=== PATIENT | female | born 1975 | race American Indian/Alaskan Native ===

== ENCOUNTER 2018-02-16 10:31 | Outpatient (CLI) | payer MEDICAID ==
--- NOTE | 2018-02-16 13:42 | Ultrasound Report ---
RIGHT UPPER QUADRANT ABDOMINAL ULTRASOUND: 02/16/18 10:31:00 CLINICAL: Epigastric pain. FINDINGS: High-resolution ultrasound demonstrated a normal liver. Normal hepatic vasculature and inferior vena cava. Normally distended gallbladder with no stones. The gall bladder wall measures 1.3 mm in thickness. Normal intrahepatic and extra hepatic bile ducts. The common bile duct measures 2.0 mm diameter. The pancreas was fairly well imaged and normal. Normal upper abdominal aorta. The right kidney is normal and measures 9.3 x 4.8 x 4.3cm. No ascites or mass. IMPRESSION: Normal study. No cholelithiasis.
--- NOTE | 2018-02-16 14:59 | Mammography Report ---
BILATERAL DIGITAL SCREENING MAMMOGRAM with CAD: 02/16/18 10:31:00 CLINICAL: Routine screening. COMPARISON: 11/21/14 FINDINGS: There are bilateral scattered areas of fibroglandular density.No mass, architectural distortion or suspicious calcifications. IMPRESSION: No mammographic evidence of malignancy. BI-RADS CATEGORY: 1 -- Negative RECOMMENDATION: Routine mammographic screening in one year. COMMENT: Patient follow-up letters are generated by our [employer] application.
== END 2018-02-16 10:32 | disposition home or self-care (01) ==
LOC: SPVWC 10:31
PROVIDERS: ATTEND Nurse Practitioner Family
DX: Z12.31 Encounter for screening mammogram for malignant neoplasm of breast (principal); R10.13 Epigastric pain; R10.10 Upper abdominal pain, unspecified
CPT/HCPCS: 76705; 77067